=== PATIENT | female | born 1950 ===

== ENCOUNTER 2020-09-28 08:55 | Day surgery (SDC) | payer OTHER ==
[~2020-09-28 08:55] MED LIST: CYMBALTA30 MG PO; LYRICA100 MG PO; SYNTHROID88 MCG PO; TENORMIN50 M1 PO
== END 2020-09-28 12:45 | disposition home or self-care (01) ==
LOC: CIR.AMB 08:55
PROVIDERS: ATTEND Anesthesiology Pain Medicine
DX: G90.522 Complex regional pain syndrome I of left lower limb (principal); Z20.822 Contact with and (suspected) exposure to COVID-19

== ENCOUNTER 2022-04-11 06:44 | Day surgery (SDC) | payer OTHER ==
[~2022-04-11] VITALS: Ht 165.1 cm; Wt 102.1 kg
== END 2022-04-11 12:55 | disposition home or self-care (01) ==
LOC: CIR.AMB 06:44
PROVIDERS: ATTEND Anesthesiology Pain Medicine
DX: G90.522 Complex regional pain syndrome I of left lower limb (principal); M19.90 Unspecified osteoarthritis, unspecified site; E11.40 Type 2 diabetes mellitus with diabetic neuropathy, unspecified; I10 Essential (primary) hypertension; E03.9 Hypothyroidism, unspecified; M54.59 Other low back pain; Z20.822 Contact with and (suspected) exposure to COVID-19